=== PATIENT | female | born 1995 | race Caucasian/White ===

== ENCOUNTER 2016-11-22 19:56 | Emergency (ER) | payer SELFPAY ==
[2016-11-22] MEDS ORDERED: NO HOME MEDICATION XX (20:58)
== END 2016-11-22 22:23 ==
LOC: EDMED 19:56
DX: S83.92XA Sprain of unspecified site of left knee, initial encounter (principal); S39.92XA Unspecified injury of lower back, initial encounter; S09.92XA Unspecified injury of nose, initial encounter; F17.200 Nicotine dependence, unspecified, uncomplicated; W50.0XXA Accidental hit or strike by another person, initial encounter

== ENCOUNTER 2016-12-01 21:23 | Emergency (ER) | payer SELFPAY ==
[~2016-12-01 21:23] MED LIST: NO HOME MEDICATION XX
[2016-12-01] MEDS ORDERED: ERYTHROMYCIN1 GM EACH EYE (22:26)
== END 2016-12-01 22:43 ==
LOC: EDMED 21:23
DX: H57.13 Ocular pain, bilateral (principal); Z77.098 Contact with and (suspected) exposure to other hazardous, chiefly nonmedicinal, chemicals